=== PATIENT | male | born 1930 | race Two or more races ===

== ENCOUNTER 2017-06-12 09:20 | Inpatient (IN) | payer MEDICAID, OTHER ==
[~2017-06-12] VITALS: Ht 165.1 cm; Wt 71.9 kg
[~2017-06-12 09:20] MED LIST: ASPI-378 PO; B-COTAB10; BENA40TA7; CALC667T2 PO; INSLISPI; LISI40TA PO; LOVA40TA72; MET25T; MIN25T PO; NIFE90TA25; PLAVIX; TAM04C
[2017-06-12 10:44] LABS: Basophils # (auto) 0.1 uL; Basophils % (auto) 1.4 % (0.0-2.0); Eosinophils # (auto) 0.2 uL; Eosinophils % (auto) 2.9 % (0.0-7.0); Hematocrit 33.8 % (41.0-53.0); Hemoglobin 11.3 g/dL (13.5-17.5); Lymphocytes # (auto) 1.9 uL; Lymphocytes % (auto) 26.8 % (10.0-50.0); Mean Corpuscular Hemoglobin 33.3 pg (28.0-32.0); Mean Corpuscular Hgb Conc. 33.5 g/dL (32.0-36.0); Mean Corpuscular Volume 99.4 fL (80.0-100.0); Mean Platelet Volume 8.5 fL (6.9-10.8); Monocytes # (auto) 0.3 uL; Monocytes % (auto) 3.9 % (0.0-12.0); Neutrophils # (auto) 4.5 uL; Platelet Count (auto) 196 10^3/uL (140-450); Red Cell Distribution Width 14.4 % (11.8-14.3)
[2017-06-12 11:18] LABS: B-Type Natriuretic Peptide 316.79 pg/mL (0-100)
[2017-06-12 11:19] LABS: Temperature: 23.7 C (20.0-25.0)
[2017-06-12 11:20] LABS: Albumin 3.5 g/dL (3.4-5.0); BUN/Creatinine Ratio 7.3; Bilirubin, Total 0.4 mg/dL (0.2-1.0); Calcium 8.5 mg/dL (8.5-10.1); Magnesium 3.1 mg/dL (1.6-2.6); Potassium 5.2 mmol/L (3.5-5.1); Total Protein 7.1 g/dL (6.4-8.2)
[2017-06-12] MEDS ORDERED: ACETAMINOPHEN 500 MG TAB PO PRN (11:30)
[2017-06-12] MEDS ORDERED: TEMAZEPAM 15 MG CAP PO PRN (11:30)
[2017-06-12] MEDS ORDERED: MORPHINE SULF INJ 2 MG/ML SYRINGE 1ML IV PRN ×2 (11:30)
[2017-06-12] MEDS ORDERED: LACTULOSE 20Gm/30ML SOLN PO PRN (11:30)
[2017-06-12] MEDS ORDERED: DEXTROSE (50%) 50ML SYRG IV PRN (11:30)
[2017-06-12] MEDS ORDERED: HYDROcodone-ACET 5/325MG TAB PO PRN (11:30)
[2017-06-12] MEDS ORDERED: NITROGLYCERIN 0.4 MG SL TAB SL PRN (11:30)
[2017-06-12] MEDS ORDERED: PROMETHAZINE HCL 25 MG/ML 1ML IV PRN (11:30)
[2017-06-12] MEDS ORDERED: LORazepam 0.5 MG TAB PO PRN (11:30)
[2017-06-12] MEDS ORDERED: ENOXAPARIN SOD 30 MG/0.3 ML SYRINGE SC ONE (11:45)
[2017-06-12] MEDS ORDERED: NITROGLYCERIN 0.2MG/HR TOPICAL PATCH TD ONE (11:45)
[2017-06-12] MEDS ORDERED: ASPirin 81 mg TAB PO ONE (11:45)
[2017-06-12] MEDS: ACCU-CHEK COMFORT CURVE STRIP VI SCH ×3 (12:35→21:25)
[2017-06-12] MEDS: InsuLIN REG 1unit/0.01ml Soln (100units/ml) SC SCH ×3 (12:52→21:54)
[2017-06-12 14:14] LABS: INR 0.92 (0.9-1.15); Partial Thromboplastin Time 25.7 sec (22.64-33.71)
[2017-06-12] MEDS ORDERED: LABETALOL HCL 5 MG/ML 4ML SYRINGE IV ONE (17:45)
[2017-06-12] MEDS ORDERED: LABETALOL HCL 5 MG/ML 4ML SYRINGE IV PRN (17:45)
[2017-06-12] MEDS ORDERED: LABETALOL HCL 5 MG/ML ML 20ML VIAL IV ONE (17:53)
[2017-06-12 21:15] VITALS: BP 190/84
[2017-06-12] MEDS: METOPROLOL TARTRATE 25 MG TAB PO SCH (21:24)
[2017-06-12 21:30] VITALS: BP 190/84
[2017-06-13] VITALS (7 sets, daily range): BP systolic 107–165; BP diastolic 60–68
[2017-06-13 06:27] LABS: Basophils # (auto) 0.1 uL; Basophils % (auto) 1.2 % (0.0-2.0); Eosinophils # (auto) 0.4 uL; Eosinophils % (auto) 6.1 % (0.0-7.0); Hematocrit 30.9 % (41.0-53.0); Hemoglobin 10.5 g/dL (13.5-17.5); Lymphocytes % (auto) 27.1 % (10.0-50.0); Mean Corpuscular Hemoglobin 33.3 pg (28.0-32.0); Mean Corpuscular Hgb Conc. 34.1 g/dL (32.0-36.0); Mean Corpuscular Volume 97.9 fL (80.0-100.0); Mean Platelet Volume 8.8 fL (6.9-10.8); Monocytes # (auto) 0.4 uL; Monocytes % (auto) 5.2 % (0.0-12.0); Neutrophils # (auto) 4.5 uL; Neutrophils % (auto) 60.4 % (37.0-80.0); Platelet Count (auto) 188 10^3/uL (140-450); Red Cell Distribution Width 14.5 % (11.8-14.3); White Blood Cell 7.4 10^3/uL (4.4-10.8)
[2017-06-13] MEDS ORDERED: LIDOCAINE W/ EPINEPHRINE 1 % INJ 30ML ONE (06:36)
[2017-06-13] MEDS ORDERED: LIDOCAINE 1% HCL (LOCAL ANESTH.) INJ 20ML MDV ONE (06:36)
[2017-06-13] MEDS ORDERED: HEPARIN 1,000 UNITS/ml 1ML VIAL ONE (06:36)
[2017-06-13] MEDS ORDERED: ceFAZolin 1GM VL ONE (06:36)
[2017-06-13] MEDS ORDERED: BUPIVACAINE W/ EPINEPH 0.25% INJ 50ML MDV ONE (06:37)
[2017-06-13] MEDS ORDERED: HEPARIN SODIUM (PORCINE) 5000 UNITS/ML 1ML VIAL ONE (06:37)
[2017-06-13] MEDS ORDERED: BUPIVACAINE 0.25% INJ 50ML VIAL ONE (06:37)
[2017-06-13 06:39] LABS: Calcium 8.5 mg/dL (8.5-10.1); Potassium 5.2 mmol/L (3.5-5.1)
[2017-06-13] MEDS: ACCU-CHEK COMFORT CURVE STRIP VI SCH ×3 (06:40→17:17)
[2017-06-13] MEDS: InsuLIN REG 1unit/0.01ml Soln (100units/ml) SC SCH ×3 (06:40→17:00)
[2017-06-13 06:50] LABS: Albumin 3.2 g/dL (3.4-5.0); BUN/Creatinine Ratio 7.6; Bilirubin, Total 0.4 mg/dL (0.2-1.0); Total Protein 6.5 g/dL (6.4-8.2)
[2017-06-13] MEDS ORDERED: ceFAZolin 1GM/50ML D5W 50 ML IV ONE (06:52)
[2017-06-13 06:58] LABS: Temperature: 21.5 C (20.0-25.0)
[2017-06-13] MEDS ORDERED: fentaNYL CITRATE 100 MCG/2 ML VL ONE (07:07)
[2017-06-13] MEDS ORDERED: METOPROLOL TARTRATE 1MG/1ML-5ML VIAL IV ONE (07:08)
[2017-06-13] MEDS ORDERED: ePHEDrine SULFATE 50 MG/ML AMP ONE (07:08)
[2017-06-13] MEDS ORDERED: LIDOCAINE HCL 2 %PF INJ 10ML AMP IJ ONE (07:08)
[2017-06-13] MEDS ORDERED: ETOMIDATE (2MG/ML) 20ML VIAL IV ONE (07:08)
[2017-06-13] MEDS ORDERED: METOCLOPRAMIDE HCL 5MG/ml INJ 2ml VIAL ONE (07:08)
[2017-06-13] MEDS ORDERED: ONDANSETRON HCL 4 MG/2 ML VIAL ONE (07:08)
[2017-06-13] MEDS ORDERED: PHENYLEPHRINE HCL 10 MG/ML VL ONE (07:33)
[2017-06-13] MEDS ORDERED: NALOXONE HCL 0.4 MG/ML VIAL IV PRN (08:45)
[2017-06-13] MEDS ORDERED: LABETALOL HCL 5 MG/ML 4ML SYRINGE IV PRN (08:45)
[2017-06-13] MEDS ORDERED: hydrALAZINE HCL 20 MG/ML VL IV PRN (08:45)
[2017-06-13] MEDS ORDERED: ONDANSETRON HCL 4 MG/2 ML VIAL IV ONE (08:45)
[2017-06-13] MEDS ORDERED: fentaNYL CITRATE 100 MCG/2 ML VL IV ONE (09:00)
[2017-06-13] MEDS ORDERED: ASPirin 81 mg TAB PO SCH (10:00)
[2017-06-13] MEDS ORDERED: ENOXAPARIN SOD 30 MG/0.3 ML SYRINGE SC SCH (10:00)
[2017-06-13] MEDS ORDERED: NITROGLYCERIN 0.2MG/HR TOPICAL PATCH TD SCH (10:00)
[2017-06-13] MEDS ORDERED: FUROSEMIDE 40 MG/4 ML VIAL IV SCH (10:00)
[2017-06-13] MEDS: METOPROLOL TARTRATE 25 MG TAB PO SCH (10:48)
[2017-06-13] MEDS ORDERED: SODIUM CHL 0.9% 1000 ML BAG XX ONE (16:00)
[2017-06-13] MEDS ORDERED: MORPHINE SULFATE 10 MG/ML INJ 1ML SDV IV PRN ×2 (16:15)
[2017-06-13] MEDS ORDERED: ATORVASTATIN 20 MG TAB PO SCH (22:00)
== END 2017-06-13 20:30 | disposition home or self-care (01) | DRG 919 ==
LOC: ER 09:20 → TELE 09:21 → TELE-CENTR 21:05
PROVIDERS: ADMIT Internal Medicine; ATTEND Internal Medicine Geriatric Medicine
PROC: 5A1D70Z Performance of Urinary Filtration, Intermittent, Less than 6 Hours Per Day (ICD-10-PCS; 2017-06-13)
PROC: 05H633Z Insertion of Infusion Device into Left Subclavian Vein, Percutaneous Approach (ICD-10-PCS; principal; 2017-06-13 07:11)
DX: T85.898A Other specified complication of other internal prosthetic devices, implants and grafts, initial encounter (principal); N18.6 End stage renal disease; E11.22 Type 2 diabetes mellitus with diabetic chronic kidney disease; E11.42 Type 2 diabetes mellitus with diabetic polyneuropathy; I12.0 Hypertensive chronic kidney disease with stage 5 chronic kidney disease or end stage renal disease; E87.5 Hyperkalemia; E78.5 Hyperlipidemia, unspecified; H54.61 Unqualified visual loss, right eye, normal vision left eye; E83.41 Hypermagnesemia; Y83.2 Surgical operation with anastomosis, bypass or graft as the cause of abnormal reaction of the patient, or of later complication, without mention of misadventure at the time of the procedure; I25.10 Atherosclerotic heart disease of native coronary artery without angina pectoris; Z99.2 Dependence on renal dialysis; Y92.89 Other specified places as the place of occurrence of the external cause; Z90.49 Acquired absence of other specified parts of digestive tract; I25.2 Old myocardial infarction; Z80.1 Family history of malignant neoplasm of trachea, bronchus and lung; Z80.3 Family history of malignant neoplasm of breast; Z80.42 Family history of malignant neoplasm of prostate; Z80.8 Family history of malignant neoplasm of other organs or systems; Z81.8 Family history of other mental and behavioral disorders; Z82.0 Family history of epilepsy and other diseases of the nervous system; Z82.3 Family history of stroke; Z82.49 Family history of ischemic heart disease and other diseases of the circulatory system; Z82.5 Family history of asthma and other chronic lower respiratory diseases; Z82.62 Family history of osteoporosis; Z83.3 Family history of diabetes mellitus; Z98.61 Coronary angioplasty status; Z79.82 Long term (current) use of aspirin; Z79.899 Other long term (current) drug therapy; Z79.4 Long term (current) use of insulin; Z95.820 Peripheral vascular angioplasty status with implants and grafts
CPT/HCPCS: 36415; 71010; 71020; 80053; 82550; 82962; 83036; 83735; 83880; 84443; 84484; 85025; 85610; 85652; 85730; 86141; 87081; 90935; 93005; 96372; 96374; 99291; J0690; J1642; J1815; J2001; J2405; J3490

== ENCOUNTER 2017-08-02 06:10 | Inpatient (IN) | payer OTHER ==
[~2017-08-02] VITALS: Ht 165.1 cm; Wt 69.4 kg
[2017-08-02 07:13] LABS: Basophils # (auto) 0 uL; Basophils % (auto) 0.2 % (0.0-2.0); Eosinophils # (auto) 0 uL; Lymphocytes # (auto) 0.8 uL; Mean Corpuscular Hemoglobin 33.2 pg (28.0-32.0); Mean Platelet Volume 9.3 fL (6.9-10.8)
[2017-08-02] MEDS ORDERED: SODIUM CHLORIDE 0.9% 1,000 ML IV ONE (07:13)
[2017-08-02 07:15] LABS: Hematocrit 19.3 % (41.0-53.0); Lymphocytes % (auto) 8.5 % (10.0-50.0); Mean Corpuscular Hgb Conc. 33.9 g/dL (32.0-36.0); Monocytes # (auto) 0.2 uL; Monocytes % (auto) 2.4 % (0.0-12.0); Neutrophils # (auto) 8.4 uL; Neutrophils % (auto) 88.9 % (37.0-80.0); Nucleated Red Blood Cells % 0.1 %; Platelet Count (auto) 368 10^3/uL (140-450); Red Cell Distribution Width 14.7 % (11.8-14.3); White Blood Cell 9.5 10^3/uL (4.4-10.8)
[2017-08-02 07:25] LABS: Albumin 2.9 g/dL (3.4-5.0); Anion Gap 20 (5-15); Calcium 9.1 mg/dL (8.5-10.1); Carbon Dioxide 21 mmol/L (21-32); Chloride 95 mmol/L (98-107); Glucose 198 mg/dL (74-106); Magnesium 2.8 mg/dL (1.6-2.6); Potassium 4.7 mmol/L (3.5-5.1); Sodium 136 mmol/L (136-145)
[2017-08-02 07:28] LABS: Lactic Acid w/Reflex 6.6 mmol/L (0.4-2.0)
[2017-08-02 07:29] LABS: REFLEX LACTIC ACID YES OR NO YES
[2017-08-02 07:31] LABS: Hemoglobin 6.5 g/dL (13.5-17.5)
[2017-08-02 07:34] LABS: Alkaline Phosphatase 56 U/L (45-117); Aspartate Aminotransferase 60 U/L (15-37); BUN/Creatinine Ratio 10.5; Bilirubin, Total 0.4 mg/dL (0.2-1.0); GFR African American 6 mL/min; GFR Non-African American 5 mL/min; Total Protein 7.3 g/dL (6.4-8.2)
[2017-08-02 07:35] LABS: Blood Urea Nitrogen 111 mg/dL (7-18)
[2017-08-02 08:11] LABS: INR 1.01 (0.9-1.15); Partial Thromboplastin Time 28.1 sec (22.64-33.71)
[2017-08-02] MEDS ORDERED: ALBUTEROL SULF 2.5 MG/0.5ML(0.5%) NEB SOLN NEB ONE (09:00)
[2017-08-02] MEDS ORDERED: IPRATROPIUM BROM 0.5 MG/2.5ML INH SOL NEB ONE (09:00)
[2017-08-02] MEDS ORDERED: ONDANSETRON HCL 4 MG/2 ML VIAL ONE (09:25)
[2017-08-02] MEDS ORDERED: ONDANSETRON HCL 4 MG/2 ML VIAL IV ONE (10:00)
[2017-08-02 10:17] VITALS: BP 92/45
[2017-08-02 10:35] VITALS: BP 80/40
[2017-08-02] MEDS ORDERED: cefTRIAXone 1GM/10ml IVPUSH 10 ML IV ONE (11:00)
[2017-08-02 13:30] VITALS: BP 102/58
[2017-08-02] MEDS ORDERED: EPOETIN ALFA 10,000 UNIT/1 ML VIAL IV ONE (15:45)
[2017-08-02] MEDS ORDERED: AZITHROMYCIN 500MG/ 250ML 250 ML IV ONE (16:30)
[2017-08-02] MEDS ORDERED: NITROGLYCERIN 0.4 MG SL TAB SL PRN (16:45)
[2017-08-02] MEDS ORDERED: DOCUSATE SOD 100 MG CAP PO PRN (16:45)
[2017-08-02] MEDS ORDERED: HYDROcodone-ACET 5/325MG TAB PO PRN (16:45)
[2017-08-02] MEDS ORDERED: ACETAMINOPHEN 325 MG TAB PO PRN (16:45)
[2017-08-02] MEDS ORDERED: DEXTROSE (50%) 50ML SYRG IV PRN (16:45)
[2017-08-02] MEDS ORDERED: MORPHINE SULF INJ 2 MG/ML SYRINGE 1ML IV PRN ×2 (16:45)
[2017-08-02 16:53] VITALS: BP 98/43
[2017-08-02 17:08] VITALS: BP 125/43
[2017-08-02] MEDS: SODIUM CHLORIDE 0.9% 1,000 ML IV SCH (17:25)
[2017-08-02] MEDS: ACCU-CHEK COMFORT CURVE STRIP VI SCH ×2 (17:26→22:18)
[2017-08-02] MEDS: InsuLIN REG 1unit/0.01ml Soln (100units/ml) SC SCH ×2 (17:42→22:23)
[2017-08-02] MEDS: Boost Glucose Control 8 Ounces PO SCH (18:00)
[2017-08-02] MEDS: CALCIUM ACETATE 667 MG CAP PO SCH (18:15)
[2017-08-02] MEDS: TAMSULOSIN HYDROCHLORIDE 0.4 MG CAP PO SCH (18:15)
[2017-08-02] MEDS: ONDANSETRON HCL 4 MG/2 ML VIAL IV PRN (18:44)
[2017-08-02] MEDS: IPRATROPIUM BROM 0.5 MG/2.5ML INH SOL NEB SCH (18:47)
[2017-08-02] MEDS: ALBUTEROL SULF 2.5 MG/0.5ML(0.5%) NEB SOLN NEB SCH (18:47)
[2017-08-02 20:28] VITALS: BP 106/27
[2017-08-02] MEDS: FAMOTIDINE 20 MG TAB PO SCH (21:01)
[2017-08-02] MEDS ORDERED: ATORVASTATIN 20 MG TAB PO SCH (22:00)
[2017-08-02] MEDS: METOPROLOL TARTRATE 25 MG TAB PO SCH (22:00)
[2017-08-02 22:14] LABS: Hemoglobin 8.1 g/dL (13.5-17.5)
[2017-08-03] MEDS: ALBUTEROL SULF 2.5 MG/0.5ML(0.5%) NEB SOLN NEB SCH ×4 (00:25→19:22)
[2017-08-03] MEDS: IPRATROPIUM BROM 0.5 MG/2.5ML INH SOL NEB SCH ×4 (00:25→19:22)
[2017-08-03 05:56] LABS: Hematocrit 25.4 % (41.0-53.0); Hemoglobin 8.6 g/dL (13.5-17.5); Mean Corpuscular Hemoglobin 32.9 pg (28.0-32.0); Mean Corpuscular Hgb Conc. 33.7 g/dL (32.0-36.0); Mean Corpuscular Volume 97.7 fL (80.0-100.0); Mean Platelet Volume 9.9 fL (6.9-10.8); Platelet Count (auto) 299 10^3/uL (140-450); Red Cell Distribution Width 15.7 % (11.8-14.3); White Blood Cell 17.5 10^3/uL (4.4-10.8)
[2017-08-03 06:03] LABS: Metamyelocytes % 0; Myelocytes % 0; Promyelocytes % 0; Reactive Lymphocytes 0
[2017-08-03 06:13] LABS: Potassium 4.5 mmol/L (3.5-5.1)
[2017-08-03 06:29] LABS: Albumin 2.9 g/dL (3.4-5.0); BUN/Creatinine Ratio 9.1; Bilirubin, Total 0.7 mg/dL (0.2-1.0); Calcium 8.1 mg/dL (8.5-10.1); Total Protein 6.8 g/dL (6.4-8.2)
[2017-08-03 06:57] LABS: Burr Cells FEW; Ovalocytes FEW; Platelet Estimate Adequate
[2017-08-03] MEDS: ACCU-CHEK COMFORT CURVE STRIP VI SCH ×4 (07:03→22:00)
[2017-08-03] MEDS: InsuLIN REG 1unit/0.01ml Soln (100units/ml) SC SCH ×4 (07:13→22:00)
[2017-08-03] MEDS ORDERED: ENOXAPARIN SOD 60 MG/0.6 ML SYRINGE SC ONE (07:30)
[2017-08-03] MEDS: CALCIUM ACETATE 667 MG CAP PO SCH ×3 (07:42→17:59)
[2017-08-03] MEDS: Boost Glucose Control 8 Ounces PO SCH ×3 (07:42→18:00)
[2017-08-03] MEDS: ONDANSETRON HCL 4 MG/2 ML VIAL IV PRN (07:50)
[2017-08-03] MEDS: cefTRIAXone 1GM/10ml IVPUSH 10 ML IV SCH (09:09)
[2017-08-03] MEDS: SODIUM CHLORIDE 0.9% 1,000 ML IV SCH (09:14)
[2017-08-03] MEDS: MINOXIDIL 2.5 MG TAB PO SCH (09:34)
[2017-08-03] MEDS: METOPROLOL TARTRATE 25 MG TAB PO SCH ×2 (09:34→22:00)
[2017-08-03] MEDS: LISINOPRIL 20 MG TAB PO SCH (09:35)
[2017-08-03] MEDS: NIFEdipine ER 30 MG TAB PO SCH (09:35)
[2017-08-03] MEDS: ASPirin 81 mg TAB PO SCH (09:37)
[2017-08-03] MEDS: MULTIPLE VITAMIN TAB PO SCH (09:37)
[2017-08-03] MEDS: B-COMPLEX W/ C & FOLIC ACID(NEPHROVITE TAB) PO SCH (09:38)
[2017-08-03] MEDS: AZITHROMYCIN 500MG/ 250ML 250 ML IV SCH (10:02)
[2017-08-03 11:18] LABS: Lactic Acid w/Reflex 11.3 mmol/L (0.4-2.0)
[2017-08-03 11:23] LABS: B-Type Natriuretic Peptide 712.1 pg/mL (0-100)
[2017-08-03 11:24] LABS: Temperature: 23.3 C (20.0-25.0)
[2017-08-03 11:51] LABS: REFLEX LACTIC ACID YES OR NO YES
[2017-08-03 16:46] VITALS: BP 117/54
[2017-08-03] MEDS: TAMSULOSIN HYDROCHLORIDE 0.4 MG CAP PO SCH (17:59)
[2017-08-03 19:50] VITALS: BP 112/40
[2017-08-04] VITALS (29 sets, daily range): BP systolic 73–141; BP diastolic 26–89
[2017-08-04] MEDS: ALBUTEROL SULF 2.5 MG/0.5ML(0.5%) NEB SOLN NEB SCH ×4 (00:06→18:46)
[2017-08-04] MEDS: IPRATROPIUM BROM 0.5 MG/2.5ML INH SOL NEB SCH ×4 (00:06→18:46)
[2017-08-04] MEDS: SODIUM CHLORIDE 0.9% 1,000 ML IV SCH (01:52)
[2017-08-04 05:40] LABS: Hemoglobin 8.2 g/dL (13.5-17.5); Red Cell Distribution Width 15.8 % (11.8-14.3); White Blood Cell 14.3 10^3/uL (4.4-10.8)
[2017-08-04 05:43] LABS: Hematocrit 24.6 % (41.0-53.0); Mean Corpuscular Hemoglobin 32.7 pg (28.0-32.0); Mean Corpuscular Hgb Conc. 33.1 g/dL (32.0-36.0); Mean Corpuscular Volume 98.8 fL (80.0-100.0); Mean Platelet Volume 9.6 fL (6.9-10.8); Platelet Count (auto) 245 10^3/uL (140-450)
[2017-08-04 05:44] LABS: Myelocytes % 0; Promyelocytes % 0; Reactive Lymphocytes 0
[2017-08-04 06:01] LABS: Potassium 4.9 mmol/L (3.5-5.1)
[2017-08-04 06:13] LABS: BUN/Creatinine Ratio 9.7; Calcium 8.6 mg/dL (8.5-10.1)
[2017-08-04 06:24] LABS: Bilirubin, Total 0.7 mg/dL (0.2-1.0); Total Protein 6.6 g/dL (6.4-8.2)
[2017-08-04 06:55] LABS: Metamyelocytes % 3; Platelet Estimate Adequate
[2017-08-04 06:56] LABS: Burr Cells FEW; Ovalocytes FEW
[2017-08-04] MEDS: ACCU-CHEK COMFORT CURVE STRIP VI SCH ×4 (07:00→22:00)
[2017-08-04] MEDS: InsuLIN REG 1unit/0.01ml Soln (100units/ml) SC SCH ×4 (07:00→22:00)
[2017-08-04] MEDS: CALCIUM ACETATE 667 MG CAP PO SCH ×3 (08:58→18:59)
[2017-08-04] MEDS: cefTRIAXone 1GM/10ml IVPUSH 10 ML IV SCH (08:59)
[2017-08-04] MEDS: Boost Glucose Control 8 Ounces PO SCH ×3 (09:46→18:00)
[2017-08-04] MEDS: AZITHROMYCIN 500MG/ 250ML 250 ML IV SCH (09:56)
[2017-08-04] MEDS: MULTIPLE VITAMIN TAB PO SCH (09:58)
[2017-08-04] MEDS: B-COMPLEX W/ C & FOLIC ACID(NEPHROVITE TAB) PO SCH (09:58)
[2017-08-04] MEDS: ASPirin 81 mg TAB PO SCH (09:59)
[2017-08-04] MEDS: NIFEdipine ER 30 MG TAB PO SCH (10:00)
[2017-08-04] MEDS: LISINOPRIL 20 MG TAB PO SCH (10:00)
[2017-08-04] MEDS: METOPROLOL TARTRATE 25 MG TAB PO SCH (10:00)
[2017-08-04] MEDS: MINOXIDIL 2.5 MG TAB PO SCH (10:01)
[2017-08-04] MEDS ORDERED: VANCOMYCIN PER PHARMACY 0 MG IV SCH (13:15)
[2017-08-04] MEDS ORDERED: LEVOFLOXACIN 750MG 150 ML IV SCH (13:15)
[2017-08-04] MEDS: CEFEPIME HYDROCHLORIDE IV SCH (15:00)
[2017-08-04] MEDS ORDERED: CEFEPIME HYDROCHLORIDE 2 GM in SODIUM CHL 0.9% 50 ML IV SCH (15:00)
[2017-08-04] MEDS ORDERED: SODIUM CHLORIDE 0.9% 500 ML IV ONE (15:00)
[2017-08-04] MEDS ORDERED: CEFEPIME HYDROCHLORIDE 2 GM in D5W 5% 50 ML IV SCH (15:00)
[2017-08-04] MEDS: D5W 5% IV SCH (15:00)
[2017-08-04] MEDS ORDERED: DOPamine 1600MCG/ML D5W 250 ML IV ONE (16:02)
[2017-08-04] MEDS ORDERED: SODIUM CHLORIDE 0.9% 1,000 ML IV SCH (16:15)
[2017-08-04] MEDS ORDERED: DOPamine 1600MCG/ML D5W 250 ML IV SCH (16:15)
[2017-08-04 16:26] LABS: Lactic Acid w/Reflex 4.7 mmol/L (0.4-2.0)
[2017-08-04 16:36] LABS: Albumin 2.7 g/dL (3.4-5.0); BUN/Creatinine Ratio 10.1; Bilirubin, Total 0.6 mg/dL (0.2-1.0); Calcium 8.2 mg/dL (8.5-10.1); Potassium 4.9 mmol/L (3.5-5.1); Total Protein 6.3 g/dL (6.4-8.2)
[2017-08-04] MEDS ORDERED: EPOETIN ALFA 10,000 UNIT/1 ML VIAL IV ONE (17:00)
[2017-08-04] MEDS ORDERED: SODIUM CHL 0.9% 1000 ML BAG XX ONE (17:00)
[2017-08-04 17:03] LABS: REFLEX LACTIC ACID YES OR NO YES
[2017-08-04] MEDS: DOPamine 1600MCG/ML D5W 250 ML IV SCH (17:15)
[2017-08-04 18:16] LABS: Hemoglobin 7.9 g/dL (13.5-17.5); Mean Corpuscular Hemoglobin 32.2 pg (28.0-32.0)
[2017-08-04 18:18] LABS: Hematocrit 24.3 % (41.0-53.0); Mean Corpuscular Hgb Conc. 32.4 g/dL (32.0-36.0); Mean Corpuscular Volume 99.6 fL (80.0-100.0); Mean Platelet Volume 9.8 fL (6.9-10.8); Platelet Count (auto) 258 10^3/uL (140-450); Red Cell Distribution Width 15.9 % (11.8-14.3)
[2017-08-04 18:26] LABS: INR 1.69 (0.9-1.15); Promyelocytes % 0; Prothrombin Time 18.5 sec (9.37-12.3); Reactive Lymphocytes 0
[2017-08-04 18:40] LABS: B-Type Natriuretic Peptide 1904.66 pg/mL (0-100)
[2017-08-04 18:43] LABS: Metamyelocytes % 3; Myelocytes % 2
[2017-08-04 18:44] LABS: Burr Cells FEW; Ovalocytes FEW; Platelet Estimate Adequate
[2017-08-04 18:48] LABS: Temperature: 23.1 C (20.0-25.0)
[2017-08-04] MEDS: TAMSULOSIN HYDROCHLORIDE 0.4 MG CAP PO SCH (18:59)
[2017-08-04] MEDS ORDERED: VANCOMYCIN 1GM/250ML 250 ML IV ONE (19:00)
[2017-08-04] MEDS: FAMOTIDINE 20 MG TAB PO SCH (20:00)
[2017-08-04] MEDS ORDERED: phytonadione 2.5 MG in SODIUM CHL 0.9% 50 ML IV ONE (20:30)
[2017-08-05] VITALS (96 sets, daily range): BP systolic 81–148; BP diastolic 28–93
[2017-08-05] MEDS: ALBUTEROL SULF 2.5 MG/0.5ML(0.5%) NEB SOLN NEB SCH ×4 (01:07→19:12)
[2017-08-05] MEDS: IPRATROPIUM BROM 0.5 MG/2.5ML INH SOL NEB SCH ×4 (01:07→19:12)
[2017-08-05] MEDS: CEFEPIME HYDROCHLORIDE IV SCH (03:00)
[2017-08-05] MEDS: D5W 5% IV SCH (03:00)
[2017-08-05] MEDS: ONDANSETRON HCL 4 MG/2 ML VIAL IV PRN (04:59)
[2017-08-05 06:38] LABS: Hematocrit 25.8 % (41.0-53.0); Hemoglobin 7.7 g/dL (13.5-17.5); Mean Corpuscular Hemoglobin 31.2 pg (28.0-32.0); Mean Corpuscular Hgb Conc. 29.9 g/dL (32.0-36.0); Mean Corpuscular Volume 104.1 fL (80.0-100.0); Mean Platelet Volume 9.3 fL (6.9-10.8); Platelet Count (auto) 209 10^3/uL (140-450); Red Cell Distribution Width 16.1 % (11.8-14.3); White Blood Cell 18.1 10^3/uL (4.4-10.8)
[2017-08-05 06:41] LABS: Metamyelocytes % 0; Myelocytes % 0; Promyelocytes % 0; Reactive Lymphocytes 0
[2017-08-05 06:55] LABS: Calcium 8.4 mg/dL (8.5-10.1); Potassium 4.8 mmol/L (3.5-5.1)
[2017-08-05] MEDS: InsuLIN REG 1unit/0.01ml Soln (100units/ml) SC SCH ×4 (07:00→22:17)
[2017-08-05] MEDS: ACCU-CHEK COMFORT CURVE STRIP VI SCH ×4 (07:00→22:14)
[2017-08-05 07:05] LABS: BUN/Creatinine Ratio 10.2
[2017-08-05] MEDS ORDERED: LIDOCAINE 2%HCL (LOCAL ANESTH.) INJ 20ML MDV ONE (07:09)
[2017-08-05] MEDS ORDERED: HEPARIN IN NS 1000Units/500mL 0 ML ONE (07:09)
[2017-08-05] MEDS ORDERED: IODIXANOL 320MG/ML 100ML BTL IV ONE (07:09)
[2017-08-05] MEDS: Boost Glucose Control 8 Ounces PO SCH ×3 (08:00→18:00)
[2017-08-05] MEDS: CALCIUM ACETATE 667 MG CAP PO SCH ×3 (08:00→18:00)
[2017-08-05] MEDS: B-COMPLEX W/ C & FOLIC ACID(NEPHROVITE TAB) PO SCH (10:00)
[2017-08-05] MEDS: ASPirin 81 mg TAB PO SCH (10:00)
[2017-08-05] MEDS: MULTIPLE VITAMIN TAB PO SCH (10:00)
[2017-08-05 13:58] LABS: Burr Cells FEW; Macrocytosis Slight; Ovalocytes FEW; Platelet Estimate Adequate
[2017-08-05] MEDS: DOPamine 1600MCG/ML D5W 250 ML IV SCH ×2 (14:30→22:13)
[2017-08-05] MEDS: NS 0.9% IV SCH (16:00)
[2017-08-05] MEDS: CEFEPIME IV SCH (16:00)
[2017-08-05] MEDS: TAMSULOSIN HYDROCHLORIDE 0.4 MG CAP PO SCH (18:00)
[2017-08-05] MEDS ORDERED: VANCOMYCIN 1GM/250ML 250 ML IV ONE (18:00)
[2017-08-05] MEDS ORDERED: ATROPINE SULF 0.5 MG/5ML SYR ONE (18:59)
[2017-08-05] MEDS ORDERED: NITROGLYCERIN 2% OINT 1GM PKG TD ONE (20:15)
[2017-08-05] MEDS: PANTOPRAZOLE 40 MG/10 ML VIAL IV SCH (21:56)
[2017-08-06] VITALS (67 sets, daily range): BP systolic 56–144; BP diastolic 22–91
[2017-08-06] MEDS: ALBUTEROL SULF 2.5 MG/0.5ML(0.5%) NEB SOLN NEB SCH ×2 (00:11→06:52)
[2017-08-06] MEDS: IPRATROPIUM BROM 0.5 MG/2.5ML INH SOL NEB SCH ×2 (00:11→06:52)
[2017-08-06] MEDS: NS 0.9% IV SCH (03:00)
[2017-08-06] MEDS: CEFEPIME IV SCH (03:00)
[2017-08-06 04:15] LABS: Hematocrit 31.4 % (41.0-53.0); Hemoglobin 10.6 g/dL (13.5-17.5); Mean Corpuscular Hemoglobin 31.6 pg (28.0-32.0); Mean Corpuscular Hgb Conc. 33.8 g/dL (32.0-36.0); Mean Corpuscular Volume 93.6 fL (80.0-100.0); Mean Platelet Volume 9.6 fL (6.9-10.8); Platelet Count (auto) 192 10^3/uL (140-450); Red Cell Distribution Width 16.4 % (11.8-14.3); White Blood Cell 14.2 10^3/uL (4.4-10.8)
[2017-08-06 04:25] LABS: Myelocytes % 0; Promyelocytes % 0; Reactive Lymphocytes 0
[2017-08-06 04:56] LABS: Albumin 2.7 g/dL (3.4-5.0); BUN/Creatinine Ratio 9.3; Bilirubin, Total 0.7 mg/dL (0.2-1.0); Potassium 3.8 mmol/L (3.5-5.1); Total Protein 6.2 g/dL (6.4-8.2)
[2017-08-06 05:15] LABS: Hypersegmented Neutrophils Present; Metamyelocytes % 2
[2017-08-06 05:16] LABS: Anisocytosis Slight; Ovalocytes FEW; Platelet Estimate Adequate
[2017-08-06] MEDS: ACCU-CHEK COMFORT CURVE STRIP VI SCH (06:22)
[2017-08-06] MEDS: DOPamine 1600MCG/ML D5W 250 ML IV SCH (06:31)
[2017-08-06] MEDS: InsuLIN REG 1unit/0.01ml Soln (100units/ml) SC SCH (06:31)
[2017-08-06] MEDS: Boost Glucose Control 8 Ounces PO SCH (08:00)
[2017-08-06] MEDS: CALCIUM ACETATE 667 MG CAP PO SCH (08:30)
[2017-08-06] MEDS: PANTOPRAZOLE 40 MG/10 ML VIAL IV SCH (10:00)
[2017-08-06] MEDS: ASPirin 81 mg TAB PO SCH (10:00)
[2017-08-06] MEDS: B-COMPLEX W/ C & FOLIC ACID(NEPHROVITE TAB) PO SCH (10:00)
[2017-08-06] MEDS: MULTIPLE VITAMIN TAB PO SCH (10:00)
[2017-08-06] MEDS ORDERED: LORazepam 2MG/ML-1ML VIAL ONE (11:37)
[2017-08-06] MEDS ORDERED: LORazepam 2MG/ML-1ML VIAL IV PRN (11:45)
[2017-08-06] MEDS ORDERED: MORPHINE SULFATE 4 MG/ML SYRG ONE (11:59)
[2017-08-06] MEDS ORDERED: MORPHINE SULFATE 4 MG/ML SYRG IV PRN (12:00)
== END 2017-08-06 17:01 | disposition hospice, home (50) | DRG 871 ==
LOC: ER 06:10 → EDBD 06:10 → TELE 06:11 → DOU IN ICU 08-03 16:05 → ICU WEST 08-04 19:35
PROVIDERS: ADMIT Internal Medicine; ATTEND Family Medicine
PROC: 5A1D70Z Performance of Urinary Filtration, Intermittent, Less than 6 Hours Per Day (ICD-10-PCS; principal; 2017-08-02)
PROC: 30233N1 Transfusion of Nonautologous Red Blood Cells into Peripheral Vein, Percutaneous Approach (ICD-10-PCS; 2017-08-02)
PROC: 5A1D70Z Performance of Urinary Filtration, Intermittent, Less than 6 Hours Per Day (ICD-10-PCS; 2017-08-05)
DX: A41.9 Sepsis, unspecified organism (principal); G92 Toxic encephalopathy; I21.4 Non-ST elevation (NSTEMI) myocardial infarction; R57.9 Shock, unspecified; J18.9 Pneumonia, unspecified organism; E44.0 Moderate protein-calorie malnutrition; E10.21 Type 1 diabetes mellitus with diabetic nephropathy; E10.65 Type 1 diabetes mellitus with hyperglycemia; N18.6 End stage renal disease; I12.0 Hypertensive chronic kidney disease with stage 5 chronic kidney disease or end stage renal disease; N25.81 Secondary hyperparathyroidism of renal origin; E83.42 Hypomagnesemia; Z66 Do not resuscitate; Z99.2 Dependence on renal dialysis; Z51.5 Encounter for palliative care; E10.22 Type 1 diabetes mellitus with diabetic chronic kidney disease; E78.5 Hyperlipidemia, unspecified; E03.9 Hypothyroidism, unspecified; I25.10 Atherosclerotic heart disease of native coronary artery without angina pectoris; Z68.25 Body mass index [BMI] 25.0-25.9, adult; I25.2 Old myocardial infarction; Z80.0 Family history of malignant neoplasm of digestive organs; Z80.1 Family history of malignant neoplasm of trachea, bronchus and lung; Z80.3 Family history of malignant neoplasm of breast; Z80.42 Family history of malignant neoplasm of prostate; D50.0 Iron deficiency anemia secondary to blood loss (chronic); Z80.8 Family history of malignant neoplasm of other organs or systems; Z81.8 Family history of other mental and behavioral disorders; Z82.0 Family history of epilepsy and other diseases of the nervous system; Z82.3 Family history of stroke; Z82.49 Family history of ischemic heart disease and other diseases of the circulatory system; Z82.5 Family history of asthma and other chronic lower respiratory diseases; Z82.62 Family history of osteoporosis; Z83.3 Family history of diabetes mellitus; Z98.61 Coronary angioplasty status; Z90.49 Acquired absence of other specified parts of digestive tract
CPT/HCPCS: 36415; 36430; 70450; 71010; 71020; 80048; 80053; 80202; 80320; 82270; 82550; 82962; 83036; 83605; 83735; 83880; 84443; 84484; 85007; 85014; 85018; 85025; 85027; 85610; 85730; 86850; 86900; 86901; 86920; 87040; 87081; 90935; 93005; 93306; 94640; 94761; 96361; 96365; 96367; 96372; C9113; J0461; J0885; J1642; J1815; J1956; J2405; J3430; J7060; Q9967